=== PATIENT | male | born 1975 | race African-American/Black ===

== ENCOUNTER 2019-09-20 09:41 | Emergency (ER) | payer MEDICAID ==
[~2019-09-20] VITALS: Ht 180.3 cm; Wt 105.3 kg
[2019-09-20 09:47] VITALS: BP 135/93
--- NOTE | 2019-09-20 10:07 | NUR ---
PT AMBULATORY TO ROOM 17 FROM [facility] FOR C/O L UPPER DENTAL PAIN RADIATING TO L SIDE FACE AFTER PT BROKE IT YESTERDAY. PT STATES HE HAS A DENTIST APPT WEDNESDAY BUT WOULD LIKE SOMETHING TO HELP W/ THE PAIN. PT RESTING ON KAMINI. SHOAIB.
[2019-09-20] MEDS ORDERED: BUPIVACAINE 0.25% ONE (10:18)
[2019-09-20] MEDS ORDERED: LIDOCAINE-MPF 1%, 5ML ONE (10:18)
[2019-09-20] MEDS ORDERED: BUPIVACAINE/PF-EPI 0.25% 1:200K SQ ONE (10:30)
[2019-09-20] MEDS ORDERED: LIDOCAINE-MPF 1%, 5ML INFIL ONE (10:30)
== END 2019-09-20 10:33 | disposition home or self-care (01) ==
LOC: ED 10:15
DX: K02.9 Dental caries, unspecified (principal); K08.89 Other specified disorders of teeth and supporting structures
CPT/HCPCS: 64400; 99284

== ENCOUNTER 2019-09-30 04:02 | Emergency (ER) | payer MEDICAID ==
[~2019-09-30] VITALS: Ht 180.3 cm; Wt 100.0 kg
--- NOTE | 2019-09-30 05:14 | NUR ---
PATIENT IS ORIENTED BUT SLEEPY, AWAKENS TO VOICE, PATIENT IS ON THE [employer]NAGER. SEZIURE PADS APPLIED FOR SAFETY, CALL RUBIO BY CLAUDIA
[2019-09-30 05:32] LABS: ALBUMIN 3.5 g/dL (3.4-5.0); ANION GAP 5 mmol/L (5-15); CALCIUM 8.1 mg/dL (8.5-10.1); CHLORIDE 109 mmol/L (98-107)
[2019-09-30 05:33] LABS: BASOPHILS # (AUTO) 0.02 x10^3/uL (0-0.1); BASOPHILS % (AUTO) 0 % (0-1); EOSINOPHILS # (AUTO) 0.12 x10^3/uL (0-0.4); EOSINOPHILS % (AUTO) 2 % (1-7); LYMPHOCYTES # (AUTO) 1.85 x10^3/uL (1-3.4); LYMPHOCYTES % (AUTO) 29 % (22-44); MD NO; MEAN CORPUSCULAR HEMOGLOBIN 30.4 pg (27.5-34.5); MEAN CORPUSCULAR HGB CONC 33.7 g/dL (33.2-36.2); MEAN CORPUSCULAR VOLUME 90.2 fL (81-97); MEAN PLATELET VOLUME 7.6 fL (7.4-10.4); MONOCYTES # (AUTO) 0.48 x10^3/uL (0.2-0.8); MONOCYTES % (AUTO) 8 % (2-9); NEUTROPHILS # (AUTO) 3.95 x10^3/uL (1.8-6.8); NEUTROPHILS % (AUTO) 62 % (42-75); PLATELET COUNT 270 x10^3/uL (130-400); RED BLOOD COUNT 4.85 x10^6/uL (4.38-5.82); RED CELL DISTRIBUTION WIDTH 13.9 % (9.4-14.8)
[2019-09-30 05:38] LABS: ALANINE AMINOTRANSFERASE 46 U/L (12-78); ALKALINE PHOSPHATASE 124 U/L (45-117); BILIRUBIN,TOTAL 2.1 mg/dL (0.2-1.0); CREATININE 1.15 mg/dL (0.7-1.3); TOTAL PROTEIN 6.6 g/dL (6.4-8.2); TROPONIN I < 0.015 ng/mL (0.000-0.045)
--- NOTE | 2019-09-30 06:06 | NUR ---
PATIENT RESTING COMFORTABLY IN ROOM,VSS,NAD. RN WILL CONTINUE TO MONITOR
--- NOTE | 2019-09-30 07:05 | NUR ---
REPORT RECIEVED FROM JEOVANNY JARRELL
--- NOTE | 2019-09-30 07:11 | NUR ---
PATIENT RESTING COMFORTABLY IN BED, NO COMPLAINTS. VITAL SIGNS TAKEN. URINE SAMPLE NEEDED, PATIENT IS UNABLE TO VOID AT THIS TIME.
--- NOTE | 2019-09-30 08:02 | NUR ---
Urine sample collected and taken to lab, patient resting comfortably in bed no further needs at this time.
[2019-09-30 08:17] LABS: MICROSCOPIC INDICATED
[2019-09-30 08:23] LABS: AMPHETAMINE SCREEN, URINE Positive (Negative); BARBITURATE SCREEN, URINE Negative (Negative); BENZODIAZEPINE SCREEN, URINE Negative (Negative); CANNABINOID SCREEN, URINE Negative (Negative); COCAINE SCREEN, URINE Negative (Negative); METHADONE SCREEN, URINE Negative (Negative); OPIATE SCREEN, URINE Negative (Negative)
--- NOTE | 2019-09-30 09:00 | NUR ---
Patient awakens easily, drowsy, resting comfortably in bed, no complaints or further needs at this time.
--- NOTE | 2019-09-30 09:22 | NUR ---
Discharge instructions explained to patient, patient acknowledged understanding. All patient belongings gathered by patient, this RN walked patient to discharge desk.
[2019-09-30 09:23] VITALS: BP 125/80
== END 2019-09-30 09:26 | disposition home or self-care (01) ==
LOC: ED 04:36
DX: F19.10 Other psychoactive substance abuse, uncomplicated (principal); R07.89 Other chest pain; R06.02 Shortness of breath; R10.13 Epigastric pain; R56.9 Unspecified convulsions; I51.7 Cardiomegaly
CPT/HCPCS: 36415; 71045; 80053; 80307; 81001; 84484; 85025; 87086; 87147; 93005; 99285